=== PATIENT | female | born 1985 | race American Indian/Alaskan Native ===

== ENCOUNTER 2019-07-20 05:28 | Emergency (ER) | payer MEDICAID ==
--- NOTE | 2019-07-20 07:46 | Emergency Department Report ---
ED ENT HPI - General Chief complaint: Dental/Oral Stated complaint: TOOTHACHE Time Seen by Provider: 07/20/19 07:17 Source: patient Mode of arrival: Ambulatory Limitations: No Limitations - History of Present Illness Initial comments: 34-year-old -[place] male nontoxic no acute distress presents to the emergency room complaining of right lower tooth pain that she has had for a while pain that started back in the last 2 days. Patient states that she went to her doctor on and her primary care provider states that they would not see her because it was dental with her mouth and throat. Patient reports she has been taking Advil 3 tablets [id number]. Patient denies any past medical history has no known drug allergies currently takes no medications on a daily basis. MD complaint: tooth pain Onset/Timin -: days(s) Location: tooth # (32,31,30) Severity: severe Severity scale (0 -10): 9 Quality: aching, sharp Consistency: constant Improves with: none Worsens with: none - Related Data Previous Rx's Medication Instructions Recorded Last Taken Type Naproxen [Naprosyn] 500 mg PO BID PRN #30 tablet 07/20/18 Unknown Rx Clindamycin [Clindamycin CAP] 300 mg PO Q8H 10 Days #30 cap 07/20/19 Unknown Rx Ibuprofen [Motrin 800 MG tab] 800 mg PO Q8HR PRN #30 tablet 07/20/19 Unknown Rx Allergies Allergy/AdvReac Type Severity Reaction Status Date / Time No Known Allergies Allergy Verified 07/20/18 01:46 ED Dental HPI - General Chief complaint: Dental/Oral Stated complaint: TOOTHACHE Time Seen by Provider: 07/20/19 07:17 Source: patient Mode of arrival: Ambulatory Limitations: No Limitations - Related Data Previous Rx's Medication Instructions Recorded Last Taken Type Naproxen [Naprosyn] 500 mg PO BID PRN #30 tablet 07/20/18 Unknown Rx Clindamycin [Clindamycin CAP] 300 mg PO Q8H 10 Days #30 cap 07/20/19 Unknown Rx Ibuprofen [Motrin 800 MG tab] 800 mg PO Q8HR PRN #30 tablet 07/20/19 Unknown Rx Allergies Allergy/AdvReac Type Severity Reaction Status Date / Time No Known Allergies Allergy Verified 07/20/18 01:46 ED Review of Systems ROS: Stated complaint: TOOTHACHE Other details as noted in HPI Comment: All other systems reviewed and negative ED Past Medical Hx - Past Medical History Previous Medical History?: No - Surgical History Hx Appendectomy: Yes Additional Surgical History: Appendectomy, with tubal ligation - Social History Smoking Status: Never Smoker Substance Use Type: None - Medications Home Medications: Home Medications Medication Instructions Recorded Confirmed Last Taken Type Naproxen [Naprosyn] 500 mg PO BID PRN #30 tablet 07/20/18 Unknown Rx Clindamycin [Clindamycin CAP] 300 mg PO Q8H 10 Days #30 cap 07/20/19 Unknown Rx Ibuprofen [Motrin 800 MG tab] 800 mg PO Q8HR PRN #30 tablet 07/20/19 Unknown Rx ED Physical Exam - General Limitations: No Limitations General appearance: alert, in no apparent distress - Head Head exam: Present: atraumatic, normocephalic - Eye Eye exam: Present: normal appearance - ENT ENT exam: Present: mucous membranes moist - Expanded ENT Exam Expanded Teeth exam: Present: dental caries, dental tenderness # (31,30,32), gingival enlargement - Neurological Exam Neurological exam: Present: alert, oriented X3, normal gait - Psychiatric Psychiatric exam: Present: normal affect, normal mood - Skin Skin exam: Present: warm, dry, intact, normal color. Absent: rash ED Course Vital Signs 07/20/19 05:31 Temperature 98.2 F Pulse Rate 87 Respiratory 18 Rate Blood Pressure 160/92 O2 Sat by Pulse 100 Oximetry ED Medical Decision Making - Medical Decision Making 34-year-old -[place] male nontoxic no acute distress presents to the emergency room complaining of right lower tooth pain that she has had for a while pain that started back in the last 2 days. Patient states that she went to her doctor on and her primary care provider states that they would not see her because it was dental with her mouth and throat. Patient reports she has been taking Advil 3 tablets [id number]. Patient denies any past medical history has no known drug allergies currently takes no medications on a daily basis. Multiple dental caries with gingiva enlargement. Will place patient on clindamycin 300 mg 3 times daily and ibuprofen 800 mg every 8 hours as needed. Patient will be referred to community dentist. Critical care attestation.: If time is entered above; I have spent that time in minutes in the direct care of this critically ill patient, excluding procedure time. ED Disposition Clinical Impression: Dental abscess, Dental caries Disposition: TO HOME OR SELFCARE Is pt being admited?: No Does the pt Need Aspirin: No Condition: Stable Additional Instructions: Complete antibiotics as prescribed. Take pain medication as needed. It is very important for you to follow-up with a dentist I will list several for your convenience. Prescriptions: Clindamycin [Clindamycin CAP] 300 mg PO Q8H 10 Days #30 cap Ibuprofen [Motrin 800 MG tab] 800 mg PO Q8HR PRN #30 tablet PRN Reason: Pain , Severe (7-10) Referrals: SLICK REDDY NP-C [Primary Care Provider] - 3-5 Days [facility] [Outside] - 3-5 Days [facility] [Outside] - 3-5 Days [facility] [Outside] - 3-5 Days Forms: Work/School Release Form(ED)
== END 2019-07-20 07:53 | disposition home or self-care (01) ==
LOC: ED 05:28
DX: K04.7 Periapical abscess without sinus (principal); K02.9 Dental caries, unspecified; Z98.890 Other specified postprocedural states; Z90.49 Acquired absence of other specified parts of digestive tract; Z79.899 Other long term (current) drug therapy; Z98.51 Tubal ligation status
CPT/HCPCS: 99282

== ENCOUNTER 2020-04-02 19:42 | Emergency (ER) | payer MEDICAID | END 2020-04-02 21:25 | disposition left against medical advice (07) | LOC: ED 19:42 | DX: R10.2 Pelvic and perineal pain (principal); Z53.21 Procedure and treatment not carried out due to patient leaving prior to being seen by health care provider ==

== ENCOUNTER 2020-10-13 13:19 | Emergency (ER) | payer MEDICAID ==
[2020-10-13] MEDS ORDERED: ASPIRIN 325 MG TAB PO ONE (14:17)
--- NOTE | 2020-10-13 15:02 | XRay Report ---
CHEST 2 VIEWS INDICATION / CLINICAL INFORMATION: CP. COMPARISON: 07/20/2018 FINDINGS: SUPPORT DEVICES: None. HEART / MEDIASTINUM: Mild cardiomegaly is stable. LUNGS / PLEURA: Mild pulmonary venous hypertension. No interstitial pulmonary edema. Both lungs are g rossly clear. No focal area of consolidation or pleural effusion identified. No pneumothorax. ADDITIONAL FINDINGS: No significant additional findings. IMPRESSION: 1. Mild cardiomegaly with mild pulmonary venous hypertension. The appearance is grossly unchanged fro 2019 chest radiograph. Signer Name: Fide zSymanski MD Signed: 10/13/2020 2:57 PM Workstation Name: [id number]
--- NOTE | 2020-10-13 15:29 | Emergency Department Report ---
ED General Adult HPI - General Chief complaint: Chest Pain Stated complaint: CHEST PAIN X 7 MONTHS Time Seen by Provider: 10/13/20 15:18 Source: patient Mode of arrival: Ambulatory Limitations: No Limitations - History of Present Illness Initial comments: Patient is a 35-year-old female presents emergency room complaints of midsternal chest pain for 7 months. She was at her primary care doctor office today and due to her stating that she had chest pain she was sent to the emergency room via EMS. Patient states that she would not have come to the emergency room if her primary care doctor did not advise her to. She states that she has a history of hyperthyroidism and has been off of her medication. she states that she went to another hospital a week ago and was restarted on her propanolol and methimazole. She denies any fever, nausea, vomiting, diarrhea, shortness of breath, pleuritic pain, exertional pain, calf pain, leg swelling, cough, hemoptysis. She denies any recent travel, recent surgery, hormone use, no immobilization. PMHx HTN. No allergies to medicines. - Related Data Previous Rx's Medication Instructions Recorded Last Taken Type Naproxen [Naprosyn] 500 mg PO BID PRN #30 tablet 07/20/18 Unknown Rx Clindamycin [Clindamycin CAP] 300 mg PO Q8H 10 Days #30 cap 07/20/19 Unknown Rx Ibuprofen [Motrin 800 MG tab] 800 mg PO Q8HR PRN #30 tablet 07/20/19 Unknown Rx Allergies Allergy/AdvReac Type Severity Reaction Status Date / Time No Known Allergies Allergy Verified 07/20/18 01:46 ED Review of Systems ROS: Stated complaint: CHEST PAIN X 7 MONTHS Other details as noted in HPI Comment: All other systems reviewed and negative ED Past Medical Hx - Past Medical History Previous Medical History?: No - Surgical History Past Surgical History?: Yes Hx Appendectomy: Yes Additional Surgical History: Appendectomy, with tubal ligation - Social History Smoking Status: Never Smoker Substance Use Type: None - Medications Home Medications: Home Medications Medication Instructions Recorded Confirmed Last Taken Type Naproxen [Naprosyn] 500 mg PO BID PRN #30 tablet 07/20/18 Unknown Rx Clindamycin [Clindamycin CAP] 300 mg PO Q8H 10 Days #30 cap 07/20/19 Unknown Rx Ibuprofen [Motrin 800 MG tab] 800 mg PO Q8HR PRN #30 tablet 07/20/19 Unknown Rx ED Physical Exam - General Limitations: No Limitations General appearance: alert, in no apparent distress - Head Head exam: Present: atraumatic, normocephalic - Eye Eye exam: Present: normal appearance - ENT ENT exam: Present: mucous membranes moist - Respiratory Respiratory exam: Present: normal lung sounds bilaterally, chest wall tenderness (mild reproducible anterior sternal chest wall ttp, no crepitus, no deformity, no edema, no skin changes ). Absent: respiratory distress, wheezes, rales, rhonchi, stridor, accessory muscle use, decreased breath sounds, prolonged expiratory - Cardiovascular Cardiovascular Exam: Present: regular rate, normal rhythm, normal heart sounds. Absent: systolic murmur, diastolic murmur, rubs, gallop - Neurological Exam Neurological exam: Present: alert, oriented X3 - Psychiatric Psychiatric exam: Present: normal affect, normal mood - Skin Skin exam: Present: warm, dry, intact ED Course Vital Signs 10/13/20 10/13/20 10/13/20 14:17 15:46 17:39 Temperature 97.9 F Pulse Rate 81 81 88 Respiratory 18 19 16 Rate Blood Pressure 156/96 Blood Pressure 128/81 [Right] O2 Sat by Pulse 100 99 99 Oximetry ED Medical Decision Making - Lab Data Result diagrams: 10/13/20 15:23 10/13/20 15:23 Lab Results 10/13/20 10/13/20 10/13/20 Range/Units 15:23 15:23 15:32 WBC 4.3 L (4.5-11.0) K/mm3 RBC 4.40 (3.65-5.03) M/mm3 Hgb 12.1 (10.1-14.3) gm/dl Hct 35.3 (30.3-42.9) % MCV 80 (79-97) fl MCH 28 (28-32) pg MCHC 34 (30-34) % RDW 14.1 (13.2-15.2) % Plt Count 196 (140-440) K/mm3 Lymph % (Auto) 49.4 H (13.4-35.0) % Cowley % (Auto) 11.0 H (0.0-7.3) % Eos % (Auto) 1.1 (0.0-4.3) % Baso % (Auto) 0.2 (0.0-1.8) % Lymph # (Auto) 2.1 (1.2-5.4) K/mm3 Cowley # (Auto) 0.5 (0.0-0.8) K/mm3 Eos # (Auto) 0.0 (0.0-0.4) K/mm3 Baso # (Auto) 0.0 (0.0-0.1) K/mm3 Seg Neutrophils % 38.3 L (40.0-70.0) % Seg Neutrophils # 1.7 L (1.8-7.7) K/mm3 Sodium 141 (137-145) mmol/L Potassium 4.4 (3.6-5.0) mmol/L Chloride 104.9 (98-107) mmol/L Carbon Dioxide 28 (22-30) mmol/L Anion Gap 13 mmol/L BUN 7 (7-17) mg/dL Creatinine 0.2 L (0.6-1.2) mg/dL Estimated GFR > 60 ml/min BUN/Creatinine Ratio 35 % Glucose 88 (65-100) mg/dL Calcium 10.1 (8.4-10.2) mg/dL Total Bilirubin 0.60 (0.1-1.2) mg/dL AST 40 (5-40) units/L ALT 41 (7-56) units/L Alkaline Phosphatase 136 H (35-129) units/L Troponin T < 0.010 (0.00-0.029) ng/mL NT-Pro-B Natriuret Pep 289.4 (0-450) pg/mL Total Protein 7.2 (6.3-8.2) g/dL Albumin 3.8 L (3.9-5) g/dL Albumin/Globulin Ratio 1.1 % HCG, Qual (Negative) 10/13/20 Range/Units 15:32 WBC (4.5-11.0) K/mm3 RBC (3.65-5.03) M/mm3 Hgb (10.1-14.3) gm/dl Hct (30.3-42.9) % MCV (79-97) fl MCH (28-32) pg MCHC (30-34) % RDW (13.2-15.2) % Plt Count (140-440) K/mm3 Lymph % (Auto) (13.4-35.0) % Cowley % (Auto) (0.0-7.3) % Eos % (Auto) (0.0-4.3) % Baso % (Auto) (0.0-1.8) % Lymph # (Auto) (1.2-5.4) K/mm3 Cowley # (Auto) (0.0-0.8) K/mm3 Eos # (Auto) (0.0-0.4) K/mm3 Baso # (Auto) (0.0-0.1) K/mm3 Seg Neutrophils % (40.0-70.0) % Seg Neutrophils # (1.8-7.7) K/mm3 Sodium (137-145) mmol/L Potassium (3.6-5.0) mmol/L Chloride (98-107) mmol/L Carbon Dioxide (22-30) mmol/L Anion Gap mmol/L BUN (7-17) mg/dL Creatinine (0.6-1.2) mg/dL Estimated GFR ml/min BUN/Creatinine Ratio % Glucose (65-100) mg/dL Calcium (8.4-10.2) mg/dL Total Bilirubin (0.1-1.2) mg/dL AST (5-40) units/L ALT (7-56) units/L Alkaline Phosphatase (35-129) units/L Troponin T (0.00-0.029) ng/mL NT-Pro-B Natriuret Pep (0-450) pg/mL Total Protein (6.3-8.2) g/dL Albumin (3.9-5) g/dL Albumin/Globulin Ratio % HCG, Qual Negative (Negative) Vital Signs 10/13/20 10/13/20 10/13/20 14:17 15:46 17:39 Temperature 97.9 F Pulse Rate 81 81 88 Respiratory 18 19 16 Rate Blood Pressure 156/96 Blood Pressure 128/81 [Right] O2 Sat by Pulse 100 99 99 Oximetry - EKG Data EKG shows normal: sinus rhythm, axis, intervals, QRS complexes, ST-T waves Rate: normal - Radiology Data Radiology results: report reviewed Ordering Physician: SIGIFREDO SMITH MD Date of Service: 10/13/20 Procedure(s): XR chest routine 2V Accession Number(s): [id number] cc: ED DOC, Fluoro Time In Minutes: CHEST 2 VIEWS INDICATION / CLINICAL INFORMATION: CP. COMPARISON: 07/20/2018 FINDINGS: SUPPORT DEVICES: None. HEART / MEDIASTINUM: Mild cardiomegaly is stable. LUNGS / PLEURA: Mild pulmonary venous hypertension. No interstitial pulmonary edema. Both lungs are grossly clear. No focal area of consolidation or pleural effusion identified. No pneumothorax. ADDITIONAL FINDINGS: No significant additional findings. IMPRESSION: 1. Mild cardiomegaly with mild pulmonary venous hypertension. The appearance is grossly unchanged from 2019 chest radiograph. Signer Name: Fide Szymanski MD Signed: 10/13/2020 2:57 PM Workstation Name: [id number] Transcribed By: Dictated By: Fide Szymanski MD Electronically Authenticated By: Fide Szymanski MD Signed Date/Time: 10/13/201456 DD/ 55 TD/TT: - Medical Decision Making Patient is a 35-year-old female presents emergency room complaints of midsternal chest pain for 7 months. She was at her primary care doctor office today and due to her stating that she had chest pain she was sent to the emergency room via EMS. Patient states that she would not have come to the emergency room if her primary care doctor did not advise her to. She states that she has a history of hyperthyroidism and has been off of her medication. she states that she went to another hospital a week ago and was restarted on her propanolol and methimazole. She denies any fever, nausea, vomiting, diarrhea, shortness of breath, pleuritic pain, exertional pain, calf pain, leg swelling, cough, hemop tysis. She denies any recent travel, recent surgery, hormone use, no immobilization. PMHx HTN. No allergies to medicines. Labs are stable. Troponin is negative. Heart score is 1, very low risk for cardiac event. Do not suspect ACS as this has been ongoing for 7 months. EKG within normal limi ts. Chest x-ray: 1. Mild cardiomegaly with mild pulmonary venous hypertension. The appearance is grossly unchanged from 2019 chest radiograph. PERC criteria negative for PE, PE unlikely. Discussed all results with patient and answer questions. Advised patient Please follow-up with your primary care doctor. Please follow-up with a painter. Return to emergency room for any new or worsening symptoms. - Differential Diagnosis Costochondritis, GERD, anxiety, pericarditis, ACS, PE, PTX, PNA Critical care attestation.: If time is entered above; I have spent that time in minutes in the direct care of this critically ill patient, excluding procedure time. ED Disposition Clinical Impression: Chest pain Qualifiers: Chest pain type: unspecified Qualified Code(s): R07.9 - Chest pain, unspecified Disposition: - TO HOME OR SELFCARE Is pt being admited?: No Does the pt Need Aspirin: No Condition: Stable Instructions: Nonspecific Chest Pain, Adult Additional Instructions: Please follow-up with your primary care doctor. Please follow-up with a painter. Return to emergency room for any new or worsening symptoms. Referrals: PRIMARY CARE, [Primary Care Provider] - 2-3 Days KELSEY STRAUSS MD [Staff Physician] - 2-3 Days Time of Disposition: 17:19 Print Language: KOREAN HEART Score - HEART Score History: Slightly suspicious EKG: Normal Age: < 45 Risk factors: 1-2 risk factors Troponin: Troponin T < 0.010 ng/mL (0.00-0.029) 10/13/20 15:23 Troponin: < normal limit HEART Score: 1
[2020-10-13 15:53] VITALS: BP 128/81
[2020-10-13 16:27] LABS: Alanine Aminotransferase 41 units/L (7-56); Albumin 3.8 g/dL (3.9-5); Blood Urea Nitrogen 7 mg/dL (7-17); Calcium 10.1 mg/dL (8.4-10.2); Hemolysis Index 9
[2020-10-13 16:33] LABS: BUN/Creatinine Ratio 35
[2020-10-13 16:39] LABS: Basophils % (Auto) 0.2 % (0.0-1.8); Eosinophils % (Auto) 1.1 % (0.0-4.3); Hematocrit 35.3 % (30.3-42.9); Hemoglobin 12.1 gm/dl (10.1-14.3); Lymphocytes # (Auto) 2.1 K/mm3 (1.2-5.4); Lymphocytes % (Auto) 49.4 % (13.4-35.0); Mean Corpuscular HGB Conc 34 % (30-34); Mean Corpuscular Volume 80 fl (79-97); Monocytes # (Auto) 0.5 K/mm3 (0.0-0.8); Platelet Count 196 K/mm3 (140-440); Red Cell Distribution Width 14.1 % (13.2-15.2)
--- NOTE | 2020-10-13 18:16 | Electrocardiograph Report ---
[facility] Test Date: 2020-10-13 Test Time: 14:23:42 Pat Name: LEIDA ALICEA Department: Room: Gender: F [employer] Technician: EVELYN : 1985 Requested By: ED DOC Order Number: [id number] Reading MD: Jordana Serna Measurements Intervals [place] Rate: 80 P: 30 CA: 120 QRS: 19 QRSD: 91 T: 7 QT: 418 QTc: 485 Interpretive Statements Sinus rhythm No previous ECG available for comparison Electronically Signed On 10-13-2020 18:15:58 EDT by Jordana Serna
== END 2020-10-13 17:40 | disposition home or self-care (01) ==
LOC: ED 13:19
DX: R07.9 Chest pain, unspecified (principal); Z98.890 Other specified postprocedural states
CPT/HCPCS: 36415; 71046; 80053; 83880; 84484; 84703; 85025; 93005; 99284